=== PATIENT | male | born 1985 | race Caucasian/White ===

== ENCOUNTER 2020-06-02 14:12 | Outpatient (REF) | payer BC, SELFPAY | END 2020-06-02 14:13 | disposition home or self-care (01) | LOC: HO.LAB 14:12 | PROVIDERS: Visit Provider Internal Medicine | DX: Z20.822 Contact with and (suspected) exposure to COVID-19 (principal) | CPT/HCPCS: 36415; C9803; U0003 ==

== ENCOUNTER 2023-11-05 15:33 | Outpatient (AMB) | payer BC, SELFPAY ==
--- NOTE | 2023-11-05 15:43 | MHC.PC.OV ---
Vital Signs 11/05/23 15:52 11/05/23 15:55 Height 5 ft 7.32 in Weight 393 lb 6 oz BMI 61.0 BP 167/91 H 183/89 H Blood Pressure Location Lt brachial Lt brachial Position Sitting Sitting Respiration 16 Pulse 89 Pulse Source Pulse Oximeter Temp 98.3 F Temp Source Oral Pulse Oximetry (%) 98 Oxygen Delivery Method Room Air Intake Visit Reasons: Establish [facility] Allergies No Known Allergies Allergy (Verified 11/05/23 15:49) Medication List - Last Reconciled 11/06/23 by Isabel Gaytan MD losartan 25 mg PO DAILY 90 days ondansetron HCl 4 mg PO Q8H PRN tirzepatide (Mounjaro) 2.5 mg (0.5 mL) subcut QWEEK 4 weeks Tobacco use date assessed: 11/05/23 Dental Screening Dental Screen Date: 11/05/23 Did you have a dental visit in the last 12 months?: Yes Did you have a dental problem in the last 6 months where you did not have access to dental care?: No Was dental information given to patient?: Patient has dentist HPI HPI Comments History of Present Illness Details The patient is a 38 year old male with a past medical history of elevated blood pressure, obesity presenting to [facility]. He has not been to pcp in years. He was seen in the ER in September after an ankle injury. His blood pressure at presentation was 240/190. It did improve to 150s/90s and he was discharged. Ankle pain has since resolved He has taken a few blood pressure readings at home. Last week it was 138/86. This morning it was 150/90. Denies headaches, vision changes. Despite eating small portions and staying active he has not been able to lose weight Gets right knee pain regularly. Notes old injury. Takes advil almost daily. Reports intermittent back pain below the right scapula. Often engages muscles in the area at work. Denies dysuria, blood in the urine Reports numbness in the right anterior and lateral thigh. It is painful sometimes but in weird way. Intermittent mild low back pain. No weakness. Has varicose veins in thigh ROS see HPI PHYSICAL EXAM: GENERAL: Overweight. Alert and oriented x 3. NAD EYES: EOMI. Anicteric. HENT: Moist mucous membranes. No scleral icterus. No cervical lymphadenopathy. LUNGS: Clear to auscultation bilaterally. CARDIOVASCULAR: Regular rate and rhythm. No murmur. No JVD. ABDOMEN: Soft, non-tender +bs. No CVA tenderness EXTREMITIES: No edema. Non-tender. SKIN: Varicosities of the upper thigh NEUROLOGIC: No focal neurological deficits. CN II-XII grossly intact PSYCHIATRIC: Cooperative. Appropriate mood and affect PFSH Family History (Updated 11/05/23 @ 15:54 by Fabiana Cain CMA) Other FH: mental illness Social History (Updated 11/05/23 @ 15:55 by Fabiana Cain CMA) Housing: House Patient Tobacco Use Status: Never used Tobacco e-Cigarette/Vaping Use: Never Used Second Hand Smoke Exposure: No service: No Current occupational status: employed Current occupation: [employer] Current occupational exposures/hazards: No Cognitive needs: No Hearing needs: No Vision needs: Yes (glasses) Questionnaire AUDIT C Alcohol Use Questionnaire (AUDIT-C) 1. How often do you have a drink containing alcohol?: 2-3 times a week 2. How many drinks containing alcohol do you have on a typical day when you are drinking?: 1 or 2 3. How often do you have six or more drinks on one occasion?: Monthly Total Score: 5 Physical exam (Primary Care) Vital Signs: Last Vital Signs Temp 98.3 F 11/05/23 15:52 Pulse 89 11/05/23 15:52 Resp 16 11/05/23 15:52 BP 183/89 H 11/05/23 15:55 Pulse Ox 98 11/05/23 15:52 Oxygen Delivery Method Room Air 11/05/23 15:52 BMI result Body Mass Index 61.0 Tobacco/Smoking Status: Tobacco use Status Tobacco use date assessed 11/05/23 11/05/23 15:52 Patient Tobacco Use Status Never used Tobacco 11/05/23 15:55 e-Cigarette/Vaping Use Never Used 11/05/23 15:55 Assessment and Plan Assessment & Plan (1) Lumbar radiculopathy: Code(s): M54.16 - Radiculopathy, lumbar region Plan: xray ordered (2) Thoracic back pain: Code(s): M54.6 - Pain in thoracic spine Qualifiers: Chronicity: chronic Back pain laterality: right Qualified Code(s): M54.6 - Pain in thoracic spine; G89.29 - Other chronic pain Plan: xray ordered Continue advil pending labs Declines referral (3) Right knee pain: Code(s): M25.561 - Pain in right knee Qualifiers: Chronicity: chronic Qualified Code(s): M25.561 - Pain in right knee; G89.29 - Other chronic pain (4) Encounter to establish care: Code(s): Z76.89 - Persons encountering health services in other specified circumstances Plan: 38 year old to establish care. past medical, surgical, social and family history reviewed (5) Hypertension: Code(s): I10 - Essential (primary) hypertension Qualifiers: Hypertension type: primary hypertension Qualified Code(s): I10 - Essential (primary) hypertension Plan: Start losartan 25mg daily Efforts toward weight loss (6) Obesity: Code(s): E66.9 - Obesity, unspecified Qualifiers: Body mass index: BMI 60.0-69.9 Obesity type: unspecified obesity type Serious obesity comorbidity presence: with serious comorbidity Obesity classification: adult class 3 (BMI >= 40) Qualified Code(s): E66.01 - Morbid (severe) obesity due to excess calories; Z68.44 - Body mass index [BMI] 60.0-69.9, adult Plan: Continue low calorie diet At least 30 minutes of cardiovascular exercise at least 5 times weekly Would greatly benefit from GLP agonist given obesity classification and now hypertension. Curt montejo. Denise montejo Orders: Orders Complete Blood Count Auto Diff 11/05/23 E66.9 - Obesity, unspecified, I10 - Essential (primary) hypertension Lipid Panel 11/05/23 E66.9 - Obesity, unspecified, I10 - Essential (primary) hypertension XR lumbar spine 2-3V 11/05/23 M54.16 - Radiculopathy, lumbar region, M54.6 - Pain in thoracic spine Lyme IgG/IgM w/reflex to WB 11/05/23 M25.561 - Pain in right knee Comprehensive Met. Panel 11/05/23 E66.9 - Obesity, unspecified, I10 - Essential (primary) hypertension Hemoglobin A1c 11/05/23 E66.9 - Obesity, unspecified, I10 - Essential (primary) hypertension XR thoracic spine 2V 11/05/23 M54.6 - Pain in thoracic spine TSH reflex Free T4 11/05/23 E66.9 - Obesity, unspecified Medications: New losartan 25 mg PO DAILY 90 days 90 tabs 3RF tirzepatide (Mounjaro) 2.5 mg (0.5 mL) subcut QWEEK 4 weeks 2 mL 0RF ondansetron HCl 4 mg PO Q8H PRN 30 tabs 3RF nausea and vomiting Coding Level of Care Code New Pt Level 4 (52548) Complex EM visit Add On G2211 Diagnoses Lumbar radiculopathy M54.16 Chronic right-sided thoracic back pain M54.6; G89.29 Chronicity: chronic Back pain laterality: right Chronic pain of right knee M25.561; G89.29 Chronicity: chronic Encounter to establish care Z76.89 Primary hypertension I10 Hypertension type: primary hypertension Class 3 severe obesity with serious comorbidity and body mass index (BMI) of 60.0 to 69.9 in adult, unspecified obesity type E66.01; Z68.44 Body mass index: BMI 60.0-69.9 Obesity type: unspecified obesity type Serious obesity comorbidity presence: with serious comorbidity Obesity classification: adult class 3 (BMI >= 40)
[2023-11-05 15:52] VITALS: BP 167/91; PULSE 89; RESP 16; TEMP 36.8; O2SAT 98; BMI 61.0
[2023-11-05 15:55] VITALS: BP 183/89
== END 2023-11-05 16:24 | disposition home or self-care (01) ==
PROVIDERS: PCP Internal Medicine; Visit Provider Internal Medicine
DX: M54.16 Radiculopathy, lumbar region (principal); E66.01 Morbid (severe) obesity due to excess calories; Z68.44 Body mass index [BMI] 60.0-69.9, adult; M54.6 Pain in thoracic spine; G89.29 Other chronic pain; M25.561 Pain in right knee; Z76.89 Persons encountering health services in other specified circumstances; I10 Essential (primary) hypertension
CPT/HCPCS: 99204

== ENCOUNTER 2023-12-11 07:53 | Outpatient (REF) | payer BC, SELFPAY ==
[2023-12-11 11:57] LABS: MANUAL DIFF FLAG NO
[2023-12-11 12:01] LABS: Basophils Absolute Auto 0.1 X10*3/uL (0.0-0.2); Basophils Percent Auto 0.6 % (0-2); Eosinophils Absolute Auto 0.3 X10*3/uL (0.0-0.4); Eosinophils Percent Auto 2.5 % (0-4); Hematocrit 44.7 % (42.0-52.0); Hemoglobin 14.3 g/dl (14.0-18.0); Imm Gran Abs Auto 0.06 X10*3/uL (0.00-0.03); Imm Gran Pct Auto 0.6 % (0.0-0.4); Lymphocytes Absolute Auto 2.1 X10*3/uL (1.2-4.9); Lymphocytes Percent Auto 19.2 % (20-40); Mean Corpuscular Hemoglobin 26.2 pg (27.0-33.0); Mean Corpuscular Volume 81.9 fL (80.0-98.0); Mean Platelet Volume 10.1 fL (9.4-12.4); Monocytes Absolute Auto 0.7 X10*3/uL (0.1-1.2); Monocytes Percent Auto 6.8 % (2-11); Neutrophils Absolute Auto 7.6 x10*3/uL (2.0-8.3); Neutrophils Percent Auto 70.3 % (45-73); Platelet Count 422 X10*3/uL (160-400); Red Blood Count 5.46 X10*6/uL (4.60-5.80); Red Cell Distribution Width 14.7 % (11.0-16.0); White Blood Count 10.7 X10*3/uL (4.8-10.8)
[2023-12-11 12:37] LABS: Estimated Average Glucose 105 mg/dL; Hemoglobin A1c % 5.3 % (<6.0)
[2023-12-11 12:38] LABS: Alanine Aminotransferase 25 U/L (0-40); Albumin Level 4.2 g/dL (3.5-5.0); Alkaline Phosphatase 73 U/L (39-117); Anion Gap 13 (12-20); Aspartate Amino Transferase 21 U/L (5-37); Bilirubin Total 0.4 mg/dL (0.0-1.0); Blood Urea Nitrogen 10 mg/dL (9-16); Calcium 9.9 mg/dL (8.4-10.2); Carbon Dioxide 28 mmol/L (22-29); Chloride 103 mmol/L (96-108); Cholesterol 206 mg/dL (<200); Estimated Glomerular Filt Rate > 60; Glucose Random 88 mg/dL (60-115); HDL Cholesterol 43 mg/dL (>40); LDL Cholesterol Calculated 136 mg/dL (<100); Potassium 4.1 mmol/L (3.3-5.1); Sodium 140 mmol/L (135-145); Total Protein 7.7 g/dL (6.5-8.0); Triglycerides 136 mg/dL (<150)
[2023-12-11 12:39] LABS: TSH reflex Free T4 1.47 uIU/mL (0.32-4.0)
[2023-12-12 10:58] LABS: Lyme Abs Screen <0.90 index
== END 2023-12-11 07:54 | disposition home or self-care (01) ==
LOC: HO.WFDLDS 07:53
PROVIDERS: Visit Provider Internal Medicine
DX: E66.9 Obesity, unspecified (principal); I10 Essential (primary) hypertension; M25.561 Pain in right knee; Z13.1 Encounter for screening for diabetes mellitus
CPT/HCPCS: 36415; 80053; 80061; 83036; 84443; 85025; 86617; 86618

== ENCOUNTER 2023-12-20 08:47 | Outpatient (AMB) | payer BC, SELFPAY ==
--- NOTE | 2023-12-20 08:52 | A.OFFPC_ITS ---
Vital Signs 12/20/23 08:56 Height 5 ft 7 in Weight 402 lb 8 oz BMI 63.0 BP 140/80 H Blood Pressure Location Lt brachial Position Sitting Pulse 82 Pulse Source Pulse Oximeter Pulse Oximetry (%) 98 Oxygen Delivery Method Room Air Intake Visit Reasons: BP follow up Intake Note: Patient is here to follow up on BP and lab results. Animal Caretaker Required: No Computer Forensics Examiner: Not Required per policy Accompanied by: Self / Same As Patient Allergies No Known Allergies Allergy (Verified 12/20/23 08:54) Tobacco use date assessed: 12/20/23 Dental Screening Dental Screen Date: 11/05/23 HPI HPI Comments History of Present Illness Details The patient is a 38 year old male with a past medical history of elevated blood pressure, obesity presenting for follow up CV: Hypertension. Placed on losartan 25mg daily at last visit. BP today 140/80, home readings 140s-150s/80s-low 90s. Tolerating med without SE. He was prescribed wegovy which was covered by insurance but has been on backorder. He was seen in the ER in September after an ankle injury. His blood pressure at presentation was 240/190. It did improve to 150s/90s and he was discharged. Ankle pain has since resolved. He has taken a few blood pressure readings at home. Last week it was 138/86. This morning it was 150/90. Denies headaches, vision changes.Despite eating small portions and staying active he has not been able to lose weight Gets right knee pain regularly. Notes old injury. Takes advil almost daily. Reports intermittent back pain below the right scapula. Often engages muscles in the area at work. Denies dysuria, blood in the urine Reports numbness in the right anterior and lateral thigh. It is painful sometimes but in weird way. Intermittent mild low back pain. No weakness. Has varicose veins in thigh ROS CONSTITUTIONAL: Denies weight loss, fever and chills. HEENT: Denies changes in vision and hearing. RESPIRATORY: Denies SOB and cough. CV: Denies palpitations and CP GI: Denies abdominal pain, nausea, vomiting and diarrhea. : Denies dysuria and urinary frequency. MSK: Denies new myalgia and joint pain. SKIN: Denies rash and pruritus. NEUROLOGICAL: Denies headache PSYCHIATRIC: Denies recent changes in mood. PHYSICAL EXAM: GENERAL: Alert and oriented x 3. NAD EYES: EOMI. Anicteric. HENT: Moist mucous membranes. No scleral icterus. No cervical lymphadenopathy. LUNGS: Clear to auscultation bilaterally. CARDIOVASCULAR: Regular rate and rhythm. No murmur. No JVD. ABDOMEN: Soft, non-tender +bs EXTREMITIES: No edema. Non-tender. SKIN: No rashes or lesions. Warm. NEUROLOGIC: No focal neurological deficits. CN II-XII grossly intact PSYCHIATRIC: Cooperative. Appropriate mood and affect [facility] Surgical History (Updated 12/20/23 @ 09:00 by TEMITOPE Muir) No pertinent past surgical history Family History Other FH: mental illness Social History Housing: House Patient Tobacco Use Status: Never used Tobacco e-Cigarette/Vaping Use: Never Used Second Hand Smoke Exposure: No service: No Current occupational status: employed Current occupation: [employer] Current occupational exposures/hazards: No Cognitive needs: No Hearing needs: No Vision needs: Yes (glasses) Questionnaire PHQ-9 Over the last 2 weeks, how often have you been bothered by any of the following problems? 1. Little interest or pleasure in doing things: not at all 2. Feeling down, depressed, or hopeless: not at all 3. Trouble falling or staying asleep, or sleeping too much: not at all 4. Feeling tired or having little energy: not at all 5. Poor appetite or overeating: not at all 6. Feeling bad about yourself - or that you are a failure or have let yourself or your family down: not at all 7. Trouble concentrating on things, such as reading the newspaper or watching television: not at all 8. Moving or speaking so slowly that other people could have noticed. Or the opposite - being so fidgety or restless that you have been moving around a lot more than usual: not at all 9. Thoughts that you would be better off or of hurting yourself in some way: not at all Total score: 0 Depression Screening Interpretation: Negative Depression Screening Done: Yes Source: Developed by Drs. Maury Richards, Bjorn Dhaliwal and colleagues, with an educational rickey from [employer]. Thrive Questionnaire Date Thrive assessed: 12/20/23 I am a: Patient What is your living situation today?: I have a steady place to live Within the past 12 months, did the food you bought not last and you didn't have the money to get more?: Never true Within the past 12 months, did you worry whether your food would run out before you got money to buy more?: Never true Do you have trouble paying for medicines?: No Do you have trouble getting transportation to medical appointments?: No Do you have trouble paying your heating and electricity bill?: No Do you have trouble taking care of your child, family member or friend?: No Do you have trouble with day-to-day activities such as bathing, preparing meals, shopping, managing finances, etc.?: No Are you currently unemployed and looking for a job?: No Are you interested in more education?: No Currently or been in a relationship where the following occur: No concerns reported THRIVE Score: 0 RUCHI-7 AMB Questionnaire RUCHI-7 Date RUCHI - 7 assessed: 12/20/23 Feeling nervous, anxious, or on edge: 0 = Not at all Not being able to stop or control worryin = Not at all Worrying too much about different things: 0 = Not at all Trouble relaxin = Not at all Being so restless that it is hard to sit still: 0 = Not at all Becoming easily annoyed or irritable: 0 = Not at all Feeling afraid as if something awful might happen: 0 = Not at all Total RUCHI-7 score (0-4 normal; 5-9 mild; 10-14 moderate; 15-21 severe): 0 Source: Developed by Drs. Maury Richards, Bjorn Dhaliwal and colleagues, with an educational rickey from [employer]. Physical exam (Primary Care) Vital Signs: Last Vital Signs Pulse 82 12/20/23 08:56 BP 140/80 H 12/20/23 08:56 Pulse Ox 98 12/20/23 08:56 Oxygen Delivery Method Room Air 12/20/23 08:56 BMI result Body Mass Index 63.0 Tobacco/Smoking Status: Tobacco use Status Tobacco use date assessed 12/20/23 12/20/23 08:54 Patient Tobacco Use Status Never used Tobacco 12/20/23 08:54 e-Cigarette/Vaping Use Never Used 12/20/23 08:54 PHQ-9: PHQ-9 Score PHQ-9: Total score 0 12/22/23 20:02 Depression Screening Interpretation: Negative Thrive Assessment: Date of Thrive Assessment Date Thrive assessed 12/20/23 12/20/23 08:54 Currently or been in a relationship where the following occur: No concerns reported Assessment and Plan Assessment & Plan (1) Hypertension: Code(s): I10 - Essential (primary) hypertension Qualifiers: Hypertension type: primary hypertension Qualified Code(s): I10 - Essential (primary) hypertension Plan: Suboptimal control on current losartan dose. Increase to 50mg daily Start wegovy when available (2) Obesity: Code(s): E66.9 - Obesity, unspecified Qualifiers: Body mass index: BMI 60.0-69.9 Obesity classification: adult class 3 (BMI >= 40) Obesity type: unspecified obesity type Serious obesity comorbidity presence: with serious comorbidity Qualified Code(s): E66.01 - Morbid (severe) obesity due to excess calories; Z68.44 - Body mass index [BMI] 60.0-69.9, adult Medications: New losartan 50 mg PO DAILY 90 tabs 3RF Coding Level of Care Code Est Pt Level 4 (02311) Diagnoses Primary hypertension I10 Hypertension type: primary hypertension Class 3 severe obesity with serious comorbidity and body mass index (BMI) of 60.0 to 69.9 in adult, unspecified obesity type E66.01; Z68.44 Body mass index: BMI 60.0-69.9 Obesity classification: adult class 3 (BMI >= 40) Obesity type: unspecified obesity type Serious obesity comorbidity presence: with serious comorbidity
[2023-12-20 08:56] VITALS: BP 140/80; PULSE 82; O2SAT 98; BMI 63.0
== END 2023-12-20 09:29 | disposition home or self-care (01) ==
PROVIDERS: PCP Internal Medicine; Visit Provider Internal Medicine
DX: I10 Essential (primary) hypertension (principal); E66.01 Morbid (severe) obesity due to excess calories; Z68.44 Body mass index [BMI] 60.0-69.9, adult
CPT/HCPCS: 99214

== ENCOUNTER 2024-02-24 09:11 | Outpatient (AMB) | payer BC, SELFPAY ==
--- NOTE | 2024-02-24 09:17 | MHC.PC.OV ---
Vital Signs 02/24/24 09:21 02/24/24 09:34 Height 5 ft 7 in Weight 402 lb 4 oz BMI 63.0 BP 144/84 H 142/88 H Blood Pressure Location Lt brachial Lt brachial Position Sitting Sitting Respiration 16 Pulse 78 Pulse Source Pulse Oximeter Pulse Oximetry (%) 93 Oxygen Delivery Method Room Air Intake Visit Reasons: 3 Months B/P Intake Note: Three month follow up htn. Wegovy 0.5mg is out of stock at patients pharmacy. They might have the 1 mg in stock. 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 Placed on losartan 25mg daily, then increased to 50mg daily. BPs 140s/80s. He was prescribed wegovy but has not been able to get the 0.5mg dose. He was seen in the ER in September after an ankle injury. His blood pressure at presentation was 240/190. It did improve to 150s/90s and he was discharged. Ankle pain has since resolved. He has taken a few blood pressure readings at home. Last week it was 138/86. This morning it was 150/90. Denies headaches, vision changes.Despite eating small portions and staying active he has not been able to lose weight Gets right knee pain regularly. Notes old injury. Takes advil almost daily. Reports intermittent back pain below the right scapula. Often engages muscles in the area at work. Denies dysuria, blood in the urine Reports numbness in the right anterior and lateral thigh. It is painful sometimes but in weird way. Intermittent mild low back pain. No weakness. Has varicose veins in thigh He has not done ordered xrays but does plan to do so ROS see HPI PHYSICAL EXAM: GENERAL: Alert and oriented x 3. NAD EYES: EOMI. Anicteric. HENT: Moist mucous membranes. No scleral icterus. No cervical lymphadenopathy. LUNGS: Clear to auscultation bilaterally. CARDIOVASCULAR: Regular rate and rhythm. No murmur. No JVD. ABDOMEN: Soft, non-tender +bs EXTREMITIES: No edema. Non-tender. SKIN: No rashes or lesions. Warm. NEUROLOGIC: No focal neurological deficits. CN II-XII grossly intact PSYCHIATRIC: Cooperative. Appropriate mood and affect [facility] Surgical History No pertinent past surgical history Family History Other FH: mental illness Social History Housing: House Patient Tobacco Use Status: Never used Tobacco e-Cigarette/Vaping Use: Never Used Second Hand Smoke Exposure: No service: No Current occupational status: employed Current occupation: [employer] Current occupational exposures/hazards: No Cognitive needs: No Hearing needs: No Vision needs: Yes (glasses) Questionnaire PHQ-9 Over the last 2 weeks, how often have you been bothered by any of the following problems? 1. Little interest or pleasure in doing things: not at all 2. Feeling down, depressed, or hopeless: not at all 3. Trouble falling or staying asleep, or sleeping too much: not at all 4. Feeling tired or having little energy: not at all 5. Poor appetite or overeating: not at all 6. Feeling bad about yourself - or that you are a failure or have let yourself or your family down: not at all 7. Trouble concentrating on things, such as reading the newspaper or watching television: not at all 8. Moving or speaking so slowly that other people could have noticed. Or the opposite - being so fidgety or restless that you have been moving around a lot more than usual: not at all 9. Thoughts that you would be better off or of hurting yourself in some way: not at all Total score: 0 Depression Screening Interpretation: Negative (Neg) Depression Screening Done: Yes 49584 - PHQ-9 Billing: Yes Source: Developed by Drs. Maury Richards, Rosa De Leon, Bjorn Smith and colleagues, with an educational rickey from [employer]. Thrive Questionnaire Date Thrive assessed: 12/20/23 I am a: Patient What is your living situation today?: I have a steady place to live Within the past 12 months, did the food you bought not last and you didn't have the money to get more?: Never true Within the past 12 months, did you worry whether your food would run out before you got money to buy more?: Never true Do you have trouble paying for medicines?: No Do you have trouble getting transportation to medical appointments?: No Do you have trouble paying your heating and electricity bill?: No Do you have trouble taking care of your child, family member or friend?: No Do you have trouble with day-to-day activities such as bathing, preparing meals, shopping, managing finances, etc.?: No Are you currently unemployed and looking for a job?: No Are you interested in more education?: No Please select the resources that you would like help with: None Currently or been in a relationship where the following occur: No concerns reported THRIVE Score: 0 AUDIT C Alcohol Use Questionnaire (AUDIT-C) 1. How often do you have a drink containing alcohol?: 2-4 times a month 2. How many drinks containing alcohol do you have on a typical day when you are drinking?: 3 or 4 3. How often do you have six or more drinks on one occasion?: Less than monthly Total Score: 4 RUCHI-7 AMB Questionnaire RUCHI-7 Date RUCHI - 7 assessed: 12/20/23 Feeling nervous, anxious, or on edge: 0 = Not at all Not being able to stop or control worryin = Not at all Worrying too much about different things: 0 = Not at all Trouble relaxin = Not at all Being so restless that it is hard to sit still: 0 = Not at all Becoming easily annoyed or irritable: 0 = Not at all Feeling afraid as if something awful might happen: 0 = Not at all Total RUCHI-7 score (0-4 normal; 5-9 mild; 10-14 moderate; 15-21 severe): 0 Source: Developed by Drs. Maury Richards, Rosa De Leon, Bjorn Smith and colleagues, with an educational rickey from [employer]. Physical exam (Primary Care) Vital Signs: Last Vital Signs Pulse 78 02/24/24 09:21 Resp 16 02/24/24 09:21 BP 142/88 H 02/24/24 09:34 Pulse Ox 93 02/24/24 09:21 Oxygen Delivery Method Room Air 02/24/24 09:21 BMI result Body Mass Index 63.0 Tobacco/Smoking Status: Tobacco use Status Tobacco use date assessed 12/20/23 02/24/24 09:27 Patient Tobacco Use Status Never used Tobacco 02/24/24 09:27 e-Cigarette/Vaping Use Never Used 02/24/24 09:27 PHQ-9: PHQ-9 Score PHQ-9: Total score 0 02/24/24 09:33 Depression Screening Interpretation: Negative (Neg) Thrive Assessment: Date of Thrive Assessment Date Thrive assessed 12/20/23 02/24/24 09:27 Currently or been in a relationship where the following occur: No concerns reported Coding Level of Care Code Est Pt Level 4 (49958) Diagnoses Primary hypertension I10 Hypertension type: primary hypertension Assessment & Plan Assessment & Plan (1) Hypertension: Code(s): I10 - Essential (primary) hypertension Category: Medical Qualifiers: Hypertension type: primary hypertension Qualified Code(s): I10 - Essential (primary) hypertension Plan: Still suboptimal control Stop losartan 50mg daily. Start losartan hctz 50/12.5mg daily Follow up for repeat BP check Medications: New losartan-hydrochlorothiazide 50-12.5 mg 1 tab PO DAILY 90 tabs 3RF Changed From semaglutide (weight loss) (Wegovy) 0.5 mg (0.5 mL) subcut QWEEK 6 mL 3RF E66.01 - Morbid (severe) obesity due to excess calories, I10 - Essential (primary) hypertension, Z68.44 - Body mass index [BMI] 60.0-69.9, adult To Wegovy (semaglutide (weight loss)) 1 mg subcut QWEEK 2 mL 3RF 4 weeks NS E66.01 - Morbid (severe) obesity due to excess calories, I10 - Essential (primary) hypertension, Z68.44 - Body mass index [BMI] 60.0-69.9, adult Discontinued losartan Discontinued Reason: Doctor's Order 50 mg PO DAILY 90 tabs 3RF
[2024-02-24 09:21] VITALS: BP 144/84; PULSE 78; RESP 16; O2SAT 93; BMI 63.0
[2024-02-24 09:34] VITALS: BP 142/88
== END 2024-02-24 09:43 | disposition home or self-care (01) ==
PROVIDERS: PCP Internal Medicine; Visit Provider Internal Medicine
DX: I10 Essential (primary) hypertension (principal)

== ENCOUNTER → 2024-02-24 09:11 | Outpatient (BNVA) | payer BC, SELFPAY | PROVIDERS: PCP Internal Medicine; Visit Provider Internal Medicine ==

== ENCOUNTER 2024-04-21 08:54 | Outpatient (AMB) | payer BC, SELFPAY ==
--- NOTE | 2024-04-21 09:05 | A.OFFPC_ITS ---
Vital Signs 04/21/24 09:06 Height 5 ft 7 in Weight 391 lb 2 oz BMI 61.3 BP 126/72 Blood Pressure Location Lt brachial Position Sitting Pulse 90 Pulse Source Pulse Oximeter Pulse Oximetry (%) 98 Oxygen Delivery Method Room Air Intake Visit Reasons: BP check Intake Note: Hypertension follow up. Feels light headed on the medication sometimes. Allergies No Known Allergies Allergy (Verified 02/24/24 09:17) Tobacco use date assessed: 12/20/23 Dental Screening Dental Screen Date: 11/05/23 HPI HPI Comments History of Present Illness Details The patient is a 38 year old male with a past medical history of elevated blood pressure, obesity presenting for follow up CV: Hypertension. Placed on losartan 25mg daily, then increased to 50mg daily and hctz added-curretnly losartan 50/hctz 12.5. Normotensive today. Has had one episode of syncope after getting up after two hours in the dentist chair. He feels dehydrated/lightheaded on a few occasions. He wants to continue on the medication for now though changes were offered... He was prescribed wegovy but has not been able to get the 0.5mg dose. He was seen in the ER in September after an ankle injury. His blood pressure at presentation was 240/190. It did improve to 150s/90s and he was discharged. Ankle pain has since resolved. He has taken a few blood pressure readings at home. Last week it was 138/86. This morning it was 150/90. Denies headaches, vision changes.Despite eating small portions and staying active he has not been able to lose weight Gets right knee pain regularly. Notes old injury. Takes advil almost daily. Reports intermittent back pain below the right scapula. Often engages muscles in the area at work. Denies dysuria, blood in the urine Reports numbness in the right anterior and lateral thigh. It is painful sometimes but in weird way. Intermittent mild low back pain. No weakness. Has varicose veins in thigh He has not done ordered xrays but does plan to do so ROS see HPI PHYSICAL EXAM: GENERAL: Alert and oriented x 3. NAD EYES: EOMI. Anicteric. HENT: Moist mucous membranes. No scleral icterus. No cervical lymphadenopathy. LUNGS: Clear to auscultation bilaterally. CARDIOVASCULAR: Regular rate and rhythm. No murmur. No JVD. ABDOMEN: Soft, non-tender +bs EXTREMITIES: No edema. Non-tender. SKIN: No rashes or lesions. Warm. NEUROLOGIC: No focal neurological deficits. CN II-XII grossly intact PSYCHIATRIC: Cooperative. Appropriate mood and affect [facility] Surgical History No pertinent past surgical history Family History Other FH: mental illness Social History (Updated 04/21/24 @ 09:06 by Fabiana Cain CMA) Housing: House Alcohol intake: current Patient Tobacco Use Status: Never used Tobacco e-Cigarette/Vaping Use: Never Used Second Hand Smoke Exposure: No service: No Current occupational status: employed Current occupation: [employer] Current occupational exposures/hazards: No Cognitive needs: No Hearing needs: No Vision needs: Yes (glasses) Questionnaire Thrive Questionnaire Date Thrive assessed: 02/24/24 I am a: Patient What is your living situation today?: I have a steady place to live Within the past 12 months, did the food you bought not last and you didn't have the money to get more?: Never true Within the past 12 months, did you worry whether your food would run out before you got money to buy more?: Never true Do you have trouble paying for medicines?: No Do you have trouble getting transportation to medical appointments?: No Do you have trouble paying your heating and electricity bill?: No Do you have trouble taking care of your child, family member or friend?: No Do you have trouble with day-to-day activities such as bathing, preparing meals, shopping, managing finances, etc.?: No Are you currently unemployed and looking for a job?: No Are you interested in more education?: No Please select the resources that you would like help with: None Currently or been in a relationship where the following occur: No concerns reported THRIVE Score: 0 RUCHI-7 AMB Questionnaire RUCHI-7 Date RUCHI - 7 assessed: 12/20/23 Source: Developed by Drs. Maury Richards, Rosa De Leon, Bjorn Smith and colleagues, with an educational rickey from [employer]. Physical exam (Primary Care) Vital Signs: Last Vital Signs Pulse 90 04/21/24 09:06 BP 126/72 04/21/24 09:06 Pulse Ox 98 04/21/24 09:06 Oxygen Delivery Method Room Air 04/21/24 09:06 BMI result Body Mass Index 61.3 Tobacco/Smoking Status: Tobacco use Status Tobacco use date assessed 12/20/23 04/21/24 09:11 Patient Tobacco Use Status Never used Tobacco 04/21/24 09:11 e-Cigarette/Vaping Use Never Used 04/21/24 09:11 Thrive Assessment: Date of Thrive Assessment Date Thrive assessed 02/24/24 04/21/24 09:11 Currently or been in a relationship where the following occur: No concerns reported Coding Level of Care Code Est Pt Level 4 (60955) Diagnoses Primary hypertension I10 Hypertension type: primary hypertension Assessment & Plan Assessment & Plan (1) Hypertension: Code(s): I10 - Essential (primary) hypertension Category: Medical Qualifiers: Hypertension type: primary hypertension Qualified Code(s): I10 - Essential (primary) hypertension Plan: well controlled on current medication Discussed changing to losartan 50 and amlodipine 5 but he would like to stay on the current medication He will follow up short term. He will call in the interim if any issues Medications: Refilled losartan-hydrochlorothiazide 50-12.5 mg 1 tab PO DAILY 90 tabs 3RF Discontinued losartan-hydrochlorothiazide 50-12.5 mg Discontinued Reason: Doctor's Order 1 tab PO DAILY 90 tabs 3RF
[2024-04-21 09:06] VITALS: BP 126/72; PULSE 90; O2SAT 98; BMI 61.3
== END 2024-04-21 09:32 | disposition home or self-care (01) ==
PROVIDERS: PCP Internal Medicine; Visit Provider Internal Medicine
DX: I10 Essential (primary) hypertension (principal)

== ENCOUNTER → 2024-04-21 08:54 | Outpatient (BNVA) | payer BC, SELFPAY | PROVIDERS: PCP Internal Medicine; Visit Provider Internal Medicine ==

== ENCOUNTER 2024-06-01 08:56 | Outpatient (AMB) | payer BC, SELFPAY ==
--- NOTE | 2024-06-01 09:12 | A.OFFPC_ITS ---
Vital Signs 06/01/24 09:19 06/01/24 09:25 Height 5 ft 7 in Weight 395 lb 8 oz BMI 61.9 BP 150/75 H 153/68 H Blood Pressure Location Lt brachial Lt brachial Position Sitting Sitting Pulse 75 Pulse Source Pulse Oximeter Pulse Oximetry (%) 96 Oxygen Delivery Method Room Air Intake Visit Reasons: 6 wks Intake Note: Six week follow up. Ran out of Lostartan-HCTZ on . Took Losaratan [address] of it while waiting for a refill. Allergies No Known Allergies Allergy (Verified 02/24/24 09:17) Tobacco use date assessed: 12/20/23 Dental Screening Dental Screen Date: 11/05/23 HPI HPI Comments History of Present Illness Details The patient is a 38 year old male with a past medical history of el evated blood pressure, obesity presenting for follow up CV: Hypertension. Placed on losartan 25mg daily, then increased to 50mg daily and hctz added-was controlled on losartan 50/hctz 12.5 however he has been out of the medication for the past month. Blood pressure is elevated.. He was prescribed wegovy but has not been able to get the 0.5mg dose. He was seen in the ER in September after an ankle injury. His blood pressure at presentation was 240/190. It did improve to 150s/90s and he was discharged. Ankle pain has since resolved. He has taken a few blood pressure readings at home. Last week it was 138/86. This morning it was 150/90. Denies headaches, vision changes.Despite eating small portions and staying active he has not been able to lose weight Gets right knee pain regularly. Notes old injury. Takes advil almost daily. Reports intermittent back pain below the right scapula. Often engages muscles in the area at work. Denies dysuria, blood in the urine Reports numbness in the right anterior and lateral thigh. It is painful sometimes but in weird way. Intermittent mild low back pain. No weakness. Has varicose veins in thigh He has not done ordered xrays but does plan to do so ROS CONSTITUTIONAL: Denies weight loss, fever and chills. HEENT: Denies changes in vision and hearing. RESPIRATORY: Denies SOB and cough. CV: Denies palpitations and CP GI: Denies abdominal pain, nausea, vomiting and diarrhea. : Denies dysuria and urinary frequency. MSK: Denies new myalgia and joint pain. SKIN: Denies rash and pruritus. NEUROLOGICAL: Denies headache PSYCHIATRIC: Denies recent changes in mood. PHYSICAL EXAM: GENERAL: Alert and oriented x 3. NAD EYES: EOMI. Anicteric. HENT: Moist mucous membranes. No scleral icterus. No cervical lymphadenopathy. LUNGS: Clear to auscultation bilaterally. CARDIOVASCULAR: Regular rate and rhythm. No murmur. No JVD. ABDOMEN: Soft, non-tender +bs EXTREMITIES: No edema. Non-tender. SKIN: No rashes or lesions. Warm. NEUROLOGIC: No focal neurological deficits. CN II-XII grossly intact PSYCHIATRIC: Cooperative. Appropriate mood and affect ON [facility] OF [facility] Surgical History No pertinent past surgical history Family History Other FH: mental illness Social History (Updated 06/01/24 @ 09:20 by Fabiana Cain CMA) Housing: House Alcohol intake: current Patient Tobacco Use Status: Never used Tobacco e-Cigarette/Vaping Use: Never Used Second Hand Smoke Exposure: No service: No Current occupational status: employed Current occupation: [employer] Current occupational exposures/hazards: No Cognitive needs: No Hearing needs: No Vision needs: Yes (glasses) Questionnaire PHQ-9 Over the last 2 weeks, how often have you been bothered by any of the following problems? 1. Little interest or pleasure in doing things: not at all 2. Feeling down, depressed, or hopeless: not at all 3. Trouble falling or staying asleep, or sleeping too much: not at all 4. Feeling tired or having little energy: not at all 5. Poor appetite or overeating: not at all 6. Feeling bad about yourself - or that you are a failure or have let yourself or your family down: not at all 7. Trouble concentrating on things, such as reading the newspaper or watching television: not at all 8. Moving or speaking so slowly that other people could have noticed. Or the opposite - being so fidgety or restless that you have been moving around a lot more than usual: not at all 9. Thoughts that you would be better off or of hurting yourself in some way: not at all Total score: 0 Source: Developed by Drs. Maury Richards, Rosa De Leon, Bjorn Smith and colleagues, with an educational rickey from [employer]. Thrive Questionnaire Date Thrive assessed: 02/24/24 I am a: Patient What is your living situation today?: I have a steady place to live Within the past 12 months, did the food you bought not last and you didn't have the money to get more?: Never true Within the past 12 months, did you worry whether your food would run out before you got money to buy more?: Never true Do you have trouble paying for medicines?: No Do you have trouble getting transportation to medical appointments?: No Do you have trouble paying your heating and electricity bill?: No Do you have trouble taking care of your child, family member or friend?: No Do you have trouble with day-to-day activities such as bathing, preparing meals, shopping, managing finances, etc.?: No Are you currently unemployed and looking for a job?: No Are you interested in more education?: No Please select the resources that you would like help with: None Currently or been in a relationship where the following occur: I choose not to answer THRIVE Score: 0 AUDIT C Alcohol Use Questionnaire (AUDIT-C) 1. How often do you have a drink containing alcohol?: 2-4 times a month 2. How many drinks containing alcohol do you have on a typical day when you are drinking?: 1 or 2 3. How often do you have six or more drinks on one occasion?: Never Total Score: 2 RUCHI-7 AMB Questionnaire RUCHI-7 Date RUCHI - 7 assessed: 12/20/23 Feeling nervous, anxious, or on edge: 0 = Not at all Not being able to stop or control worryin = Not at all Worrying too much about different things: 0 = Not at all Trouble relaxin = Not at all Being so restless that it is hard to sit still: 0 = Not at all Becoming easily annoyed or irritable: 0 = Not at all Feeling afraid as if something awful might happen: 0 = Not at all Total RUCHI-7 score (0-4 normal; 5-9 mild; 10-14 moderate; 15-21 severe): 0 Source: Developed by Drs. Maury Richards, Rosa De Leon, Bjorn Smith and colleagues, with an educational rickey from [employer]. Physical exam (Primary Care) Vital Signs: Last Vital Signs Pulse 75 06/01/24 09:19 BP 153/68 H 06/01/24 09:25 Pulse Ox 96 06/01/24 09:19 Oxygen Delivery Method Room Air 06/01/24 09:19 BMI result Body Mass Index 61.9 Tobacco/Smoking Status: Tobacco use Status Tobacco use date assessed 12/20/23 06/01/24 09:12 Patient Tobacco Use Status Never used Tobacco 06/01/24 09:20 e-Cigarette/Vaping Use Never Used 06/01/24 09:20 PHQ-9: PHQ-9 Score PHQ-9: Total score 0 06/01/24 09:24 Thrive Assessment: Date of Thrive Assessment Date Thrive assessed 02/24/24 06/01/24 09:12 Currently or been in a relationship where the following occur: I choose not to answer Coding Level of Care Code Est Pt Level 3 (80392) Diagnoses Primary hypertension I10 Hypertension type: primary hypertension Assessment & Plan Assessment & Plan (1) Hypertension: Code(s): I10 - Essential (primary) hypertension Category: Medical Qualifiers: Hypertension type: primary hypertension Qualified Code(s): I10 - Essential (primary) hypertension Plan: Elevated blood pressure off medication. He will restart the medication. He was feeling well on meds. Already waiting at pharmacy
[2024-06-01 09:19] VITALS: BP 150/75; PULSE 75; O2SAT 96; BMI 61.9
[2024-06-01 09:25] VITALS: BP 153/68
== END 2024-06-01 09:39 | disposition home or self-care (01) ==
PROVIDERS: PCP Internal Medicine; Visit Provider Internal Medicine
DX: I10 Essential (primary) hypertension (principal)

== ENCOUNTER 2024-08-31 08:53 | Outpatient (AMB) | payer BC, SELFPAY ==
--- NOTE | 2024-08-31 09:00 | A.OFFPC_ITS ---
Vital Signs 08/31/24 09:05 08/31/24 09:15 08/31/24 09:19 Height 5 ft 7 in Weight 374 lb 4 oz BMI 58.6 BP 141/72 H 130/66 Blood Pressure Location Rt brachial Rt brachial Rt brachial Position Sitting Sitting Sitting Respiration 16 Pulse 87 Pulse Source Pulse Oximeter Pulse Oximetry (%) 98 Oxygen Delivery Method Room Air Intake Visit Reasons: BP follow up Intake Note: Blood pressure follow up Teacher Counselor Required: No Allergies No Known Allergies Allergy (Verified 08/31/24 09:04) Tobacco use date assessed: 08/31/24 Dental Screening Dental Screen Date: 11/05/23 HPI HPI Comments History of Present Illness Details The patient is a 38 year old male with a past medical history of elevated blood pressure, obesity presenting for follow up CV: Hypertension. Contolled now on losartan 50/hctz 12.5. Has lost over 20 pounds with wegovy, congratulated today. He was seen in the ER in September after an ankle injury. His blood pressure at presentation was 240/190. It did improve to 150s/90s and he was discharged. Ankle pain has since resolved. He has taken a few blood pressure readings at home. Last week it was 138/86. This morning it was 150/90. Denies headaches, vision changes.Despite eating small portions and staying active he has not been able to lose weight Gets right knee pain regularly. Notes old injury. Takes advil almost daily. Reports intermittent back pain below the right scapula. Often engages muscles in the area at work. Denies dysuria, blood in the urine Reports numbness in the right anterior and lateral thigh. It is painful sometimes but in weird way. Intermittent mild low back pain. No weakness. Has varicose veins in thigh He has not done ordered xrays but does plan to do so ROS CONSTITUTIONAL: Denies weight loss, fever and chills. HEENT: Denies changes in vision and hearing. RESPIRATORY: Denies SOB and cough. CV: Denies palpitations and CP GI: Denies abdominal pain, nausea, vomiting and diarrhea. : Denies dysuria and urinary frequency. MSK: Denies new myalgia and joint pain. SKIN: Denies rash and pruritus. NEUROLOGICAL: Denies headache PSYCHIATRIC: Denies recent changes in mood. PHYSICAL EXAM: GENERAL: Alert and oriented x 3. NAD EYES: EOMI. Anicteric. HENT: Moist mucous membranes. No scleral icterus. No cervical lymphadenopathy. LUNGS: Clear to auscultation bilaterally. CARDIOVASCULAR: Regular rate and rhythm. No murmur. No JVD. ABDOMEN: Soft, non-tender +bs EXTREMITIES: No edema. Non-tender. SKIN: No rashes or lesions. Warm. NEUROLOGIC: No focal neurological deficits. CN II-XII grossly intact PSYCHIATRIC: Cooperative. Appropriate mood and affect [facility] Surgical History No pertinent past surgical history Family History Other FH: mental illness Social History Housing: House Alcohol intake: current Patient Tobacco Use Status: Never used Tobacco e-Cigarette/Vaping Use: Never Used Second Hand Smoke Exposure: No service: No Current occupational status: employed Current occupation: [employer] Current occupational exposures/hazards: No Cognitive needs: No Hearing needs: No Vision needs: Yes (glasses) Questionnaire Thrive Questionnaire Date Thrive assessed: 06/01/24 I am a: Patient What is your living situation today?: I have a steady place to live Within the past 12 months, did the food you bought not last and you didn't have the money to get more?: Never true Within the past 12 months, did you worry whether your food would run out before you got money to buy more?: Never true Do you have trouble paying for medicines?: No Do you have trouble getting transportation to medical appointments?: No Do you have trouble paying your heating and electricity bill?: No Do you have trouble taking care of your child, family member or friend?: No Do you have trouble with day-to-day activities such as bathing, preparing meals, shopping, managing finances, etc.?: No Are you currently unemployed and looking for a job?: No Are you interested in more education?: No Please select the resources that you would like help with: None Currently or been in a relationship where the following occur: I choose not to answer THRIVE Score: 0 AUDIT C Alcohol Use Questionnaire (AUDIT-C) 1. How often do you have a drink containing alcohol?: 2-4 times a month 2. How many drinks containing alcohol do you have on a typical day when you are drinking?: 1 or 2 3. How often do you have six or more drinks on one occasion?: Never Total Score: 2 RUCHI-7 AMB Questionnaire RUCHI-7 Date RUCHI - 7 assessed: 12/20/23 Source: Developed by Drs. Maury Richards, Rosa De Leon, Bjorn Smith and colleagues, with an educational rickey from [employer]. Physical exam (Primary Care) Vital Signs: Last Vital Signs Pulse 87 08/31/24 09:05 Resp 16 08/31/24 09:05 BP 130/66 08/31/24 09:19 Pulse Ox 98 08/31/24 09:05 Oxygen Delivery Method Room Air 08/31/24 09:05 BMI result Body Mass Index 58.6 Tobacco/Smoking Status: Tobacco use Status Tobacco use date assessed 08/31/24 08/31/24 09:06 Patient Tobacco Use Status Never used Tobacco 08/31/24 09:02 e-Cigarette/Vaping Use Never Used 08/31/24 09:02 Thrive Assessment: Date of Thrive Assessment Date Thrive assessed 06/01/24 08/31/24 09:02 Currently or been in a relationship where the following occur: I choose not to answer Coding Level of Care Code Est Pt Level 4 (75963) Diagnoses Primary hypertension I10 Hypertension type: primary hypertension Class 3 severe obesity with serious comorbidity and body mass index (BMI) of 60.0 to 69.9 in adult, unspecified obesity type E66.01; Z68.44 Obesity type: unspecified obesity type Obesity classification: adult class 3 (BMI >= 40) Serious obesity comorbidity presence: with serious comorbidity Body mass index: BMI 60.0-69.9 Assessment & Plan Assessment & Plan (1) Hypertension: Code(s): I10 - Essential (primary) hypertension Category: Medical Qualifiers: Hypertension type: primary hypertension Qualified Code(s): I10 - Essential (primary) hypertension (2) Obesity: Code(s): E66.9 - Obesity, unspecified Category: Medical Qualifiers: Obesity type: unspecified obesity type Obesity classification: adult class 3 (BMI >= 40) Serious obesity comorbidity presence: with serious comorbidity Body mass index: BMI 60.0-69.9 Qualified Code(s): E66.01 - Morbid (severe) obesity due to excess calories; Z68.44 - Body mass index [BMI] 60.0- 69.9, adult Plan Hypertension-improved control. Continue current BP medications. Continued weight loss efforts. Increase wegovy dose to maximize weight loss Medications: New Wegovy (semaglutide (weight loss)) 1.7 mg (0.75 mL) subcut QWEEK 3 mL 2RF NS E66.01 - Morbid (severe) obesity due to excess calories, I10 - Essential (primary) hypertension, Z68.44 - Body mass index [BMI] 60.0-69.9, adult Discontinued Wegovy (semaglutide (weight loss)) Discontinued Reason: Duplicate 1 mg (0.5 mL) subcut QWEEK 6 mL 3RF NS E66.01 - Morbid (severe) obesity due to excess calories, I10 - Essential (primary) hypertension, Z68.44 - Body mass index [BMI] 60.0-69.9, adult
[2024-08-31 09:05] VITALS: PULSE 87; RESP 16; O2SAT 98; BMI 58.6
[2024-08-31 09:15] VITALS: BP 141/72
[2024-08-31 09:19] VITALS: BP 130/66
== END 2024-08-31 09:28 | disposition home or self-care (01) ==
LOC: HO.HMCFM 08:54
PROVIDERS: PCP Internal Medicine; Visit Provider Internal Medicine
DX: I10 Essential (primary) hypertension (principal); E66.01 Morbid (severe) obesity due to excess calories; Z68.44 Body mass index [BMI] 60.0-69.9, adult

== ENCOUNTER → 2024-08-31 08:53 | Outpatient (BNVA) | payer BC, SELFPAY | PROVIDERS: PCP Internal Medicine; Visit Provider Internal Medicine ==

== ENCOUNTER 2025-03-02 08:59 | Outpatient (REF) | payer BC, SELFPAY ==
[2025-03-02 11:27] LABS: MANUAL DIFF FLAG NO
[2025-03-02 12:09] LABS: Hematocrit 46.7 % (42.0-52.0); Hemoglobin 14.5 g/dl (14.0-18.0); Imm Gran Abs Auto 0.08 X10*3/uL (0.00-0.03); Imm Gran Pct Auto 0.9 % (0.0-0.4); Lymphocytes Absolute Auto 2.1 X10*3/uL (1.2-4.9); Mean Corpuscular HGB Conc 31.0 g/dl (31.0-36.0); Mean Corpuscular Hemoglobin 25.8 pg (27.0-33.0); Mean Corpuscular Volume 83.1 fL (80.0-98.0); NRBC Abs Auto 0.000 X10*3/uL (0.0-0.012); NRBC Pct Auto 0.0 /100WBC (0.0-0.2); Platelet Count 383 X10*3/uL (160-400); Red Blood Count 5.62 X10*6/uL (4.60-5.80); White Blood Count 8.6 X10*3/uL (4.8-10.8)
[2025-03-02 12:29] LABS: Alanine Aminotransferase 26 U/L (0-40); Albumin Level 4.3 g/dL (3.5-5.0); Alkaline Phosphatase 60 U/L (39-117); Anion Gap 11 (12-20); Aspartate Amino Transferase 32 U/L (5-37); Blood Urea Nitrogen 16 mg/dL (9-16); Calcium 9.8 mg/dL (8.4-10.2); Carbon Dioxide 31 mmol/L (22-29); Chloride 102 mmol/L (96-108); Cholesterol 183 mg/dL (<200); Estimated Glomerular Filt Rate > 60; HDL Cholesterol 40 mg/dL (>40); Potassium 4.1 mmol/L (3.3-5.1); Sodium 140 mmol/L (135-145); Total Protein 7.3 g/dL (6.5-8.0); Triglycerides 91 mg/dL (<150)
== END 2025-03-02 09:00 | disposition home or self-care (01) ==
LOC: HO.WFDLDS 08:59
PROVIDERS: PCP Internal Medicine; Visit Provider Internal Medicine
DX: I10 Essential (primary) hypertension (principal); R35.89 Other polyuria; E66.01 Morbid (severe) obesity due to excess calories; E66.813 Obesity, class 3; M25.561 Pain in right knee; R20.0 Anesthesia of skin; M54.16 Radiculopathy, lumbar region; Z13.1 Encounter for screening for diabetes mellitus; Z68.44 Body mass index [BMI] 60.0-69.9, adult
CPT/HCPCS: 36415; 80053; 80061; 83036; 84443; 85025

== ENCOUNTER 2025-03-02 08:59 | Outpatient (AMB) | payer BC, SELFPAY ==
--- NOTE | 2025-03-02 09:01 | MHC.PC.OV ---
Vital Signs 03/02/25 09:04 Height 5 ft 7 in Weight 352 lb 4 oz BMI 55.2 BP 136/74 Blood Pressure Location Rt brachial Position Sitting Respiration 16 Pulse 91 Pulse Source Pulse Oximeter Pulse Oximetry (%) 98 Oxygen Delivery Method Room Air Intake Visit Reasons: BP/weight Intake Note: Follow up htn and weight. Insurance no longer covering Wegovy Rehabilitation Technician Required: No Allergies No Known Allergies Allergy (Verified 03/02/25 09:05) Tobacco use date assessed: 03/02/25 Dental Screening Dental Screen Date: 03/02/25 Did you have a dental visit in the last 12 months?: Yes Did you have a dental problem in the last 6 months where you did not have access to dental care?: No Was dental information given to patient?: Patient has dentist HPI HPI Comments History of Present Illness Details The patient is a 39 year old male with a past medical history of elevated blood pressure, obesity presenting for follow up CV: Stable on losartan 50/hctz 12.5. Down 402 to 352lbs on wegovy. As of Feb 17 not covered by insurance. He is unsure regarding alternate He was seen in the ER in September after an ankle injury. His blood pressure at presentation was 240/190. It did improve to 150s/90s and he was discharged. Ankle pain has since resolved. He has taken a few blood pressure readings at home. Last week it was 138/86. This morning it was 150/90. Denies headaches, vision changes.Despite eating small portions and staying active he has not been able to lose weight Gets right knee pain regularly. Notes old injury. Takes advil almost daily. Reports intermittent back pain below the right scapula. Often engages muscles in the area at work. Denies dysuria, blood in the urine Reports numbness in the right anterior and lateral thigh. It is painful sometimes but in weird way. Intermittent mild low back pain. No weakness. Has varicose veins in thigh Had xrays ordered ROS CONSTITUTIONAL: Denies weight loss, fever and chills. HEENT: Denies changes in vision and hearing. RESPIRATORY: Denies SOB and cough. CV: Denies palpitations and CP GI: Denies abdominal pain, nausea, vomiting and diarrhea. : Denies dysuria and urinary frequency. MSK: Denies new myalgia and joint pain. SKIN: Denies rash and pruritus. NEUROLOGICAL: Denies headache PSYCHIATRIC: Denies recent changes in mood. PHYSICAL EXAM: GENERAL: Alert and oriented x 3. NAD EYES: EOMI. Anicteric. HENT: Moist mucous membranes. No scleral icterus. No cervical lymphadenopathy. LUNGS: Clear to auscultation bilaterally. CARDIOVASCULAR: Regular rate and rhythm. No JVD. ABDOMEN: Soft, non-tender +bs EXTREMITIES: No edema. Non-tender. SKIN: No rashes or lesions. Warm. NEUROLOGIC: No focal neurological deficits. CN II-XII grossly intact PSYCHIATRIC: Cooperative. Appropriate mood and affect [facility] Surgical History No pertinent past surgical history Family History Other FH: mental illness Social History Housing: House Alcohol intake: current Patient Tobacco Use Status: Never used Tobacco e-Cigarette/Vaping Use: Never Used Second Hand Smoke Exposure: No service: No Current occupational status: employed Current occupation: [employer] Current occupational exposures/hazards: No Cognitive needs: No Hearing needs: No Vision needs: Yes (glasses) Questionnaire Thrive Questionnaire Date Thrive assessed: 06/01/24 I am a: Patient What is your living situation today?: I have a steady place to live Within the past 12 months, did the food you bought not last and you didn't have the money to get more?: Never true Within the past 12 months, did you worry whether your food would run out before you got money to buy more?: Never true Do you have trouble paying for medicines?: No Do you have trouble getting transportation to medical appointments?: No Do you have trouble paying your heating and electricity bill?: No Do you have trouble taking care of your child, family member or friend?: No Do you have trouble with day-to-day activities such as bathing, preparing meals, shopping, managing finances, etc.?: No Are you currently unemployed and looking for a job?: No Are you interested in more education?: No Please select the resources that you would like help with: None Currently or been in a relationship where the following occur: I choose not to answer THRIVE Score: 0 AUDIT C Alcohol Use Questionnaire (AUDIT-C) 1. How often do you have a drink containing alcohol?: 2-4 times a month 2. How many drinks containing alcohol do you have on a typical day when you are drinking?: 1 or 2 3. How often do you have six or more drinks on one occasion?: Never Total Score: 2 RUCHI-7 AMB Questionnaire RUCHI-7 Date RUCHI - 7 assessed: 12/20/23 Source: Developed by Drs. Maury Richards, Rosa De Leon, Bjorn Smith and colleagues, with an educational rickey from [employer]. Physical exam (Primary Care) Vital Signs: Last Vital Signs Pulse 91 03/02/25 09:04 Resp 16 03/02/25 09:04 BP 136/74 03/02/25 09:04 Pulse Ox 98 03/02/25 09:04 Oxygen Delivery Method Room Air 03/02/25 09:04 BMI result Body Mass Index 55.2 Tobacco/Smoking Status: Tobacco use Status Tobacco use date assessed 03/02/25 03/02/25 09:08 Patient Tobacco Use Status Never used Tobacco 03/02/25 09:08 e-Cigarette/Vaping Use Never Used 03/02/25 09:08 Thrive Assessment: Date of Thrive Assessment Date Thrive assessed 06/01/24 03/02/25 09:03 Currently or been in a relationship where the following occur: I choose not to answer Coding Level of Care Code Est Pt Level 4 (24458) Diagnoses Primary hypertension I10 Hypertension type: primary hypertension Class 3 severe obesity with serious comorbidity and body mass index (BMI) of 60.0 to 69.9 in adult, unspecified obesity type E66.01; Z68.44 Body mass index: BMI 60.0-69.9 Obesity classification: adult class 3 (BMI >= 40) Obesity type: unspecified obesity type Serious obesity comorbidity presence: with serious comorbidity Lumbar radiculopathy M54.16 Assessment & Plan Assessment & Plan (1) Hypertension: Code(s): I10 - Essential (primary) hypertension Category: Medical Qualifiers: Hypertension type: primary hypertension Qualified Code(s): I10 - Essential (primary) hypertension (2) Obesity: Code(s): E66.9 - Obesity, unspecified Category: Medical Qualifiers: Body mass index: BMI 60.0-69.9 Obesity classification: adult class 3 (BMI >= 40) Obesity type: unspecified obesity type Serious obesity comorbidity presence: with serious comorbidity Qualified Code(s): E66.01 - Morbid (severe) obesity due to excess calories; Z68.44 - Body mass index [BMI] 60.0-69.9, adult (3) Lumbar radiculopathy: Code(s): M54.16 - Radiculopathy, lumbar region Category: Medical Plan 39 year old male for follow up HTN is well controlled on current medication Obesity-congratulated on interval weight loss. He is still morbidly obese and should continue on GLP therapy which he has tolerated well. Orders: Orders Lipid Panel 03/02/25 E66. - Morbid (severe) obesity due to excess calories, I10 - Essential (primary) hypertension, R35.89 - Other polyuria, Z68.44 - Body mass index [BMI] 60.0-69.9, adult Complete Blood Count Auto Diff 03/02/25 E66. - Morbid (severe) obesity due to excess calories, I10 - Essential (primary) hypertension, R35.89 - Other polyuria, Z68.44 - Body mass index [BMI] 60.0-69.9, adult Comprehensive Met. Panel 03/02/25 E66. - Morbid (severe) obesity due to excess calories, I10 - Essential (primary) hypertension, R35.89 - Other polyuria, Z68.44 - Body mass index [BMI] 60.0-69.9, adult Hemoglobin A1c 03/02/25 E66.01 - Morbid (severe) obesity due to excess calories, I10 - Essential (primary) hypertension, R35.89 - Other polyuria, Z68.44 - Body mass index [BMI] 60.0-69.9, adult TSH reflex Free T4 03/02/25 E66.01 - Morbid (severe) obesity due to excess calories, I10 - Essential (primary) hypertension, R35.89 - Other polyuria, Z68.44 - Body mass index [BMI] 60.0-69.9, adult Medications: New tirzepatide (weight loss) (Zepbound) transition from Wegovy. No longer covered. Patient can download zepbound savings card for lower copay 5 mg (0.5 mL) subcut QWEEK 6 mL 3RF
[2025-03-02 09:04] VITALS: BP 136/74; PULSE 91; RESP 16; O2SAT 98; BMI 55.2
--- OUTSIDE RECORDS SUMMARY | 2025-03-02 09:36 | XMS_ITS | Clinical Summary ---
Author Organization [facility] Address [address] [place], [place] [id number] Phone Care Team Providers Care Certified [employer] Engineer Name Role Phone Pcp, Unknown Primary Care Provider Unavailabl e Allergies No known active allergies Medications penicillin V potassium (VEETIDS) 500 MG tablet Take 1 tablet (500 mg total) by mouth 2 (two) times a day. Take w food, yogurt, probiotics. Finish all. 20 tablet 08/13/2022 Active Active Problems No known active problems Social History Tobacco Use Types Packs/Day Years Used Date Smoking Tobacco: Never Smokeless Tobacco: Never Tobacco Cessation:Counseling Given: Not Answered Education Answer Date Recorded Are you interested in more education? Not on olivia e 09/14/2022 Are you concerned about learning? Not on file 09/14/2022 No 09/14/2022 No 09/14/2022 Digital Access Answer Date Recorded No 10/13/2022 No 10/13/2022 No 10/13/2022 Reliable internet access at home? Not on file 10/13/2022 Device with a working camera? Not on file Sex and Gender Information Value Date Recorded Sex Assigned at Male 05/26/2019 8:52 AM EST Legal Sex Male 10:28 PM EDT Gender Identity Male 05/26/2019 8:52 AM EST Sexual Orientation Straight 05/26/2019 8: 52 AM EST Last Filed Vital Signs Vital Sign Reading Time Taken Comments Blood Pressure 171/99 08/13/2022 9:46 AM EDT Pulse 92 08/13/2022 9:46 AM EDT Temperature 37 C (98.6 F) 08/13/2022 9:46 AM EDT Respiratory Rate 18 08/13/2022 9:46 AM EDT Oxygen Saturation 100% 08/13/2022 9:46 AM EDT Inhaled Oxygen Concentration - - Weight 181.4 kg (400 lb) 08/13/2022 9:46 AM EDT per pt Height 174 cm (5' 8.5 ) 05/26/2019 9:11 AM EST Body Mass Index 59.94 05/26/2019 9:11 AM EST Plan of Treatment Health Maintenance Due Date Last Done Comments Adult Td,Tdap Booster 1984 LIPID PANEL 1984 DEPRESSION SCREENING 1996 HEPATITIS C SCREENING 2002 HIV ONE-TIME SCREENING (18-6 5 YEARS) 2002 SCREENING FOR DIABETES 2019 INFLUENZA VACCINE (#1) 2024 02/02/2020 COVID-19 VACCINE (2 - 2024-2 6 season) 2025 08/06/2020 SMOKING STATUS SCREENING (On ce After 26 Yrs) Completed 08/13/2022 HEPATITIS A VACCINES Aged Out No long er eligible based on patient's age to complete this topic HIB VACCINES Aged Out No longer eligi ble based on patient's age to complete this topic MENINGOCOCCAL VACCINES (ACWY) Aged Out No longer eligible based on patient's age to complete this topic MENINGOCOCCAL VACCINES (B) Aged Out N o longer eligible based on patient's age to complete this topic PNEUMOCOCCAL VACCINES (0-49 years) Aged Out No longer eligible based on patient's age to complete this topic Medical Devices Not on file [place] [address] [address] [place] [address] [place] [address] [place] [address] Care Teams Certified [employer]ell Engineer Relationship Specialty Start Date End Date Pcp, Unknown PCP - General 08/13/22 Additional Source Comments The information contained in this document represents components of the legal health record. It is not the complete legal health record.[facility]
== END 2025-03-02 09:21 | disposition home or self-care (01) ==
LOC: HO.HMCFM 09:00
PROVIDERS: PCP Internal Medicine; Visit Provider Internal Medicine
DX: I10 Essential (primary) hypertension (principal); E66.01 Morbid (severe) obesity due to excess calories; Z68.44 Body mass index [BMI] 60.0-69.9, adult; M54.16 Radiculopathy, lumbar region